=== PATIENT | male | born 2000 | race Caucasian/White ===

== ENCOUNTER 2020-06-06 21:17 | Emergency (ER) | payer SELFPAY ==
[2020-06-06] MEDS ORDERED: Lidocaine 1% 10 ML MDV INJECT ONE (21:58)
[2020-06-06] MEDS ORDERED: metroNIDAZOLE 500 MG Tab PO ONE (21:58)
[2020-06-06] MEDS ORDERED: Doxycycline 100 MG Cap PO ONE (21:59)
--- NOTE | 2020-06-06 22:03 | EDM.PDOC ---
ED HPI GENERAL MEDICAL PROBLEM - General Chief Complaint: Skin Complaint Stated Complaint: CYST ON LOWER SPINE Time Seen by Provider: 06/06/20 21:58 Source of Information: Reports: Patient History Limitations: Reports: No Limitations - History of Present Illness INITIAL COMMENTS - FREE TEXT/NARRATIVE: 20-year-old male presents to the ED with a painful swollen area on his superior nuchal cleft of his buttock. He states he has had a pilonidal cyst in the past about 2 years ago. It drained on its own. This 1 is been gradually getting worse over the last 10 to 12 days. To that it is currently to the point that he cannot hardly walk or sit. No systemic signs of illness such as fever chills nausea or vomiting. Onset: Gradual Onset Date: 05/29/20 Duration: Day(s):, Getting Worse Location: Reports: Other (Pilonidal abscess superior nuchal cleft right side) Quality: Reports: Ache, Throbbing Severity: Moderate (9 out of 10) Improves with: Reports: Rest Worsens with: Reports: Other Context: Denies: Activity (Sitting and walking), Exercise, Lifting, Sick Contact, Trauma, Other Treatments MARKETING REP: Reports: Acetaminophen, NSAIDS Upper Buttock Pain Score (Numeric/FACES): 8 - Related Data Allergies Allergy/AdvReac Type Severity Reaction Status Date / Time No Known Allergies Allergy Verified 06/06/20 21:39 Home Meds: Home Meds Doxycycline [Vibra-Tabs] 100 mg PO Q12HR #20 tab 06/06/20 [Rx] metroNIDAZOLE [Flagyl] 500 mg PO Q8H #21 tab 06/06/20 [Rx] Past Medical History - Past Health History Medical/Surgical History: Denies Medical/Surgical History - Infectious Disease History Infectious Disease History: Reports: Novel Coronavirus Social & Family History - Tobacco Use Smoking Status *Q: Never Smoker - Recreational Drug Use Recreational Drug Use: No - Living Situation & Occupation Occupation: Employed ED ROS GENERAL - Review of Systems Review Of Systems: See Below Constitutional: Denies: Fever, Chills, Malaise, Weakness, Fatigue HEENT: Reports: No Symptoms Respiratory: Reports: No Symptoms Cardiovascular: Reports: No Symptoms Endocrine: Reports: No Symptoms GI/Abdominal: Reports: No Symptoms : Reports: No Symptoms Musculoskeletal: Reports: No Symptoms Skin: Reports: Other (Pilonidal cyst) Neurological: Reports: No Symptoms ( abscess right superior nuchal cleft.) Psychiatric: Reports: No Symptoms Hematologic/Lymphatic: Reports: No Symptoms Immunologic: Reports: No Symptoms ED EXAM, SKIN/RASH Exam: See Below Exam Limited By: No Limitations General Appearance: Alert, WD/WN, Mild Distress, Other (Temperature is 37.2. Heart rate 85 and sinus respiratory 16 BP is 160/82 with a pulse ox of 100.) Eye Exam: Bilateral Eye: Normal Inspection (No scleral icterus or blepharal pallor.) Respiratory/Chest: No Respiratory Distress, Lungs Clear, No Accessory Muscle Use Cardiovascular: Normal Peripheral Pulses, Regular Rate, Rhythm, No Edema, No Gallop, No Murmur, No Rub Peripheral Pulses: 3+: Posterior Tibial (L), Posterior Tibial (R), Dorsalis Pedis (L), Dorsalis Pedis (R) GI/Abdominal: Normal Bowel Sounds, Soft, Non-Tender, No Organomegaly, No Mass, Pelvis Stable, Other (Mildly obese.) Rectal (Males) Exam: Other (Patient has a 1.5 cm fluctuant mass just to the right of the midline of the nuchal cleft superiorly. This is clinically is a pilonidal abscess. It is very tender to touch. There is no surrounding luz thema or cellulitis.) Back Exam: Normal Inspection, Full Range of Motion Extremities: Normal Inspection, Normal Range of Motion, Non-Tender, No Pedal Edema, Normal Capillary Refill Neurological: Alert, Oriented, CN II-XII Intact, Normal Cognition, Normal Gait Psychiatric: Normal Affect, Normal Mood Skin: Warm, Dry, Intact, Normal Color, Other (Pilonidal abscess superior nuchal cleft right side) Associated features: Warmth, Tenderness, Swelling. No: Induration ED SKIN PROCEDURES - I&D Skin Prep: Chlorhexidine (Hibiciens) Local Anesthesia: Lidocaine: 1% Plain Local Anesthetic Volume: 3cc Area Incised With: 15 Blade Drainage: Purulent, Moderate Amount (15 mils foul-smelling purulent discharge) Probed to Break Up Loculations: Yes Packed With: 1/2 in. Iodoform Sterile Dressing: Adhesive Dressing, 4x4(s) Complications: No Course - Vital Signs Last Recorded V/S: Last Vital Signs Temp 37.2 C 06/06/20 21:35 Pulse 85 06/06/20 21:35 Resp 16 06/06/20 21:35 BP 160/82 H 06/06/20 21:35 Pulse Ox 100 06/06/20 21:35 - Orders/Labs/Meds Orders: Active Orders 24 hr Category Date Time Status CULTURE ANAEROBIC + SMEAR [RM] Stat Lab 06/06/20 22:40 Received Meds: Medications Discontinued Medications Generic Name Dose Route Start Last Admin Trade Name Moises PRN Reason Stop Dose Admin Doxycycline Hyclate 200 mg 06/06/20 21:59 06/06/20 22:09 Vibramycin PO 06/06/20 22:00 200 mg ONETIME ONE Administration Lidocaine HCl 10 ml 06/06/20 21:58 06/06/20 22:09 Xylocaine 1% INJECT 06/06/20 21:59 10 ml ONETIME ONE Administration Metronidazole 500 mg 06/06/20 21:58 06/06/20 22:09 Flagyl PO 06/06/20 21:59 500 mg ONETIME ONE Administration Oxycodone/Acetaminophen 2 tab 06/06/20 23:18 06/06/20 23:37 Percocet 325-5 Mg PO 06/06/20 23:19 2 tab ONETIME ONE Administration - Radiology Interpretation Free Text/Narrative:: 20-year-old male presents to the ED with a painful lesion superior aspect of the nuchal cleft on the right side for the last 10 to 12 days. It is now gotten to the point that he cannot hardly walk or sit. Examination confirms a pilonidal abscess measuring approximately 1.5 cm in length and 1 cm in width just to the right of the midline of the superior nuchal cleft. It is slightly fluctuant. Plan will be to incise and drain this area and tentatively place a drain if possible. He will be given Flagyl 500 mg p.o. and doxycycline 200 mg p.o. in the ED. He will be discharged on the same medication. - Re-Assessments/Exams Free Text/Narrative Re-Assessment/Exam: 06/06/20 22:42 labs as incised and drained under local anesthetic using 1% lidocaine. Obtained approximately 12 cc of foul-smelling purulent material mixed with some blood. Patient tolerated the procedure very well. A small half inch piece of tube gauze was placed in the wound to act as an packing for the next 48 hours. Patient be placed on Flagyl 500 mg 3 times daily for 7 days and doxycycline 100 mg twice daily for 10 days to clear up infection. He will follow-up with Dr. Kang surgeon so that this can be marsupialized and fixed permanently in the future. Departure - Departure Time of Disposition: 23:14 Disposition: Home, Self-Care 01 Condition: Fair Clinical Impression: Pilonidal abscess - Discharge Information *PRESCRIPTION DRUG MONITORING PROGRAM REVIEWED*: Not Applicable *COPY OF PRESCRIPTION DRUG MONITORING REPORT IN PATIENT HERNANDEZ: Not Applicable Prescriptions: metroNIDAZOLE [Flagyl] 500 mg PO Q8H #21 tab Doxycycline [Vibra-Tabs] 100 mg PO Q12HR #20 tab Instructions: Pilonidal Cyst Referrals: PCP,Not In Area [Primary Care Provider] - Forms: ED Department Discharge Additional Instructions: Evaluation in the emergency room tonight in regards to a pilonidal abscess that is developed on the superior aspect of the nuchal cleft on the right side. This seems to have gradually occurred over the last 10 to 12 days. Treatment was incision and drainage of the abscess with local anesthetic using lidocaine 1%. Obtained approximately 10-12 mils of purulent foul-smelling material from the wound. A small amount of packing was left in the wound and ideally it should stay in place for 48 hours. It may then be removed. You will need antibiotic doxycycline 100 mg twice daily for the next 10 days to clear up infection. Initial doses were provided in the ED. Second antibiotic will be Flagyl 500 mg 3 times daily for 1 week to also help clear up infection. Suggest arranging a follow-up appointment with Dr. Sarath Kang surgeon here at the hospital. Suggest follow-up in 48 hours if possible. Please call [phone] to make an appointment tomorrow morning. Continue Motrin 600 mg every 6 hours for pain relief. You were sent home with 2 Percocet 5/325 mg tablets to be taken if needed for pain relief during the night. Sepsis Event Note (ED) - Evaluation Sepsis Screening Result: No Definite Risk - Focused Exam Vital Signs: Vital Signs Temp Pulse Resp BP Pulse Ox 06/06/20 21:35 37.2 C 85 16 160/82 H 100 - My Orders Last 24 Hours: My Active Orders 06/06/20 22:40 CULTURE ANAEROBIC + SMEAR [RM] Stat - Assessment/Plan Last 24 Hours: My Active Orders 06/06/20 22:40 CULTURE ANAEROBIC + SMEAR [RM] Stat
[2020-06-06] MEDS ORDERED: Acetaminophen/oxyCODONE 325-5 MG Tab PO ONE (23:18)
== END 2020-06-06 23:40 | disposition home or self-care (01) ==
LOC: JD.ED 21:17
DX: L05.01 Pilonidal cyst with abscess (principal)
CPT/HCPCS: 10080; 87075; 87205; 99283; A9270; J2001; 10061; 87076; 87077; 87181; 87184